=== PATIENT | female | born 2000 | race Caucasian/White ===

== ENCOUNTER 2018-02-21 12:46 | Emergency (ER) | payer MEDICAID ==
[~2018-02-21] VITALS: Ht 167.6 cm; Wt 48.1 kg
[2018-02-21 12:55] VITALS: BP 128/088; Ht 167.6 cm; Wt 48.1 kg
[2018-02-21 13:50] LABS: BASOPHILS 0.7 % (0-2); EOSINOPHILS 1.4 % (0-7); HEMATOCRIT 38.8 % (36.0-48.0); HEMOGLOBIN 13.2 g/dL (12-16); IMMATURE GRANULOCYTES 0.1 % (0-5); LYMPHOCYTES 35.2 % (15-50); MCH 30.3 pg (26.0-34.0); MEAN PLATELET VOLUME 9.9 fL (7.4-10.4); MONOCYTES 5.5 % (2-11); NEUTROPHILS 57.1 % (40-80); RBC 4.36 10x6/uL (4.00-5.40); RDW 12.3 % (11.5-14.5); WBC 8.1 10x3/uL (4.8-10.8)
[2018-02-21 13:52] LABS: HCG SERUM NEGATIVE (NEGATIVE)
[2018-02-21 13:53] LABS: PLATELET COUNT 337 10x3/uL (130-400)
[2018-02-21 14:14] LABS: APPEARANCE CLEAR (CLEAR); BILIRUBIN NEGATIVE (NEGATIVE); COLOR YELLOW (YELLOW); GLUCOSE NEGATIVE (NEGATIVE); KETONE NEGATIVE (NEGATIVE); NITRITE NEGATIVE (NEGATIVE); PROTEIN NEGATIVE (NEGATIVE); SPECIFIC GRAVITY 1.005 (1.005-1.020); UROBILINOGEN NORMAL (NORMAL)
[2018-02-21 14:15] LABS: AMYLASE - SERUM 102 U/L (25-115); LIPASE 93 U/L (73-393)
[2018-02-21 14:53] LABS: ALBUMIN 3.8 g/dL (3.4-5.0); ALKALINE PHOSPHATASE 82 U/L (46-116); ALT (SGPT) 17 U/L (10-68); BILIRUBIN - TOTAL 0.15 mg/dL (0.2-1.3); CALC OSMOLALITY 279 mosm/kg (275-300); CALCIUM 9.1 mg/dL (8.5-10.1); CARBON DIOXIDE 26.3 mmol/L (21.0-32.0); CHLORIDE - SERUM 103 mmol/L (98-107); CREATININE - SERUM 0.8 mg/dL (0.6-1.3); GLUCOSE 87 mg/dL (74-106); POTASSIUM - SERUM 4.3 mmol/L (3.5-5.1); PROTEIN - SERUM 8.8 g/dL (6.4-8.2); SODIUM 141 mmol/L (136-145); UREA NITROGEN 12 mg/dL (7-18); eGFR NON AFRICAN AMERICAN > 90 mL/min (90-120)
[2018-02-21] MEDS ORDERED: KEFLEX500 MG PO (16:24)
[2018-02-21] MEDS ORDERED: CLEOCIN HCL300 MG PO (16:24)
[2018-02-21] MEDS ORDERED: VALTREX1000 MG PO (16:26)
[2018-02-21] MEDS ORDERED: BACTRIM DS1 TAB PO (16:39)
== END 2018-02-21 16:46 | disposition home or self-care (01) ==
LOC: D.ER 12:46
PROVIDERS: Family Medicine
DX: A60.00 Herpesviral infection of urogenital system, unspecified (principal); R59.0 Localized enlarged lymph nodes; F17.200 Nicotine dependence, unspecified, uncomplicated

== ENCOUNTER 2020-08-30 11:16 | Emergency (ER) | payer MEDICAID ==
[~2020-08-30] VITALS: Ht 167.6 cm; Wt 504.8 kg
[~2020-08-30 11:16] MED LIST: BACTRIM DS1 TAB PO; CLEOCIN HCL300 MG PO; KEFLEX500 MG PO; VALTREX1000 MG PO
[2020-08-30 11:24] VITALS: Ht 167.6 cm; Wt 504.8 kg
[2020-08-30 11:52] LABS: EOSINOPHILS 1.2 % (0-7); HEMATOCRIT 38.7 % (36.0-48.0); HEMOGLOBIN 12.7 g/dL (12-16); LYMPHOCYTES 39.2 % (15-50); MCH 27.7 pg (26.0-34.0); MCHC 32.8 g/dL (31.0-37.0); MCV 84.6 fL (80.0-100.0); MEAN PLATELET VOLUME 7.8 fL (7.4-10.4); NEUTROPHILS 52.6 % (40-80); RBC 4.57 10x6/uL (4.00-5.40); RDW 13.8 % (11.5-14.5); WBC 6.6 10x3/uL (4.8-10.8)
[2020-08-30 11:58] LABS: PLATELET COUNT 263 10x3/uL (130-400)
[2020-08-30 12:05] LABS: CALC OSMOLALITY 272 mosm/kg (275-300); CALCIUM 8.9 mg/dL (8.5-10.1); CHLORIDE - SERUM 103 mmol/L (98-107); CREATININE - SERUM 0.8 mg/dL (0.6-1.3); GLUCOSE 85 mg/dL (74-106); POTASSIUM - SERUM 4.3 mmol/L (3.5-5.1); SODIUM 137 mmol/L (136-145); UREA NITROGEN 13 mg/dL (7-18); eGFR NON AFRICAN AMERICAN > 90 mL/min (90-120)
[2020-08-30 12:09] LABS: ALBUMIN 4.1 g/dL (3.4-5.0); ALKALINE PHOSPHATASE 68 U/L (30-120); ALT (SGPT) 24 U/L (10-68); AMYLASE - SERUM 97 U/L (25-115); BILIRUBIN - TOTAL 0.35 mg/dL (0.2-1.3); LIPASE 63 U/L (73-393); PROTEIN - SERUM 7.9 g/dL (6.4-8.2)
[2020-08-30 12:12] LABS: TROPONIN-I < 0.017 ng/mL (0.000-0.060)
[2020-08-30 12:32] LABS: HCG URINE NEGATIVE (NEGATIVE)
[2020-08-30 12:35] LABS: BACTERIA FEW HPF (<MOD); BILIRUBIN NEGATIVE (NEGATIVE); KETONE NEGATIVE mg/dL (< 1+); NITRITE NEGATIVE (NEGATIVE); SQUAMOUS EPITHELIAL 12 HPF (0-4); UROBILINOGEN NORMAL mg/dL (< 2); WHITE CELLS - URINE 22 HPF (0-4)
[2020-08-30] MEDS ORDERED: LEVAQUIN750 MG PO (12:49)
[2020-08-30 13:29] VITALS: BP 121/78
== END 2020-08-30 13:30 | disposition home or self-care (01) ==
LOC: D.ER 11:16
PROVIDERS: Family Medicine
DX: R10.30 Lower abdominal pain, unspecified (principal); N39.0 Urinary tract infection, site not specified; R11.0 Nausea